=== PATIENT | male | born 1995 | race Caucasian/White ===

== ENCOUNTER → 2017-08-20 | Outpatient (CLI) | payer OTHER ==
[~2017-08-20] MED LIST: DOXE3TAB4 PO; HYDR-4228 PO; NS(*) 0.9% 1000 ML BAG 1,000 ML IV ONE; ONDA4TAB PO; ONDANSETRON 4 MG/2 ML VIAL IVP ONE; SERT-184 PO
== END ==
LOC: SPU 11:54
PROVIDERS: ATTEND Nurse Practitioner Primary Care
DX: K52.9 Noninfective gastroenteritis and colitis, unspecified (principal)
CPT/HCPCS: 96360; J2405; J7030

== ENCOUNTER → 2018-03-29 | Outpatient (CLI) | payer OTHER ==
[~2018-03-29] MED LIST changes: +AMOX-559 PO; +FLUT16SP19 NS; -NS(*) 0.9% 1000 ML BAG 1,000 ML IV ONE; -ONDANSETRON 4 MG/2 ML VIAL IVP ONE; +[UNRECOGNIZED DRUG - REMARK]
== END ==
LOC: LAB 11:02
PROVIDERS: ATTEND Nurse Practitioner Primary Care
DX: Z11.3 Encounter for screening for infections with a predominantly sexual mode of transmission (principal)
CPT/HCPCS: 36415; 86592; 86703; 87491; 87591

== ENCOUNTER → 2019-01-16 | Outpatient (CLI) | payer OTHER ==
[~2019-01-16] MED LIST changes: +GUAI120L3 PO
== END ==
LOC: RESP 08:10
PROVIDERS: ATTEND Specialist
DX: G40.309 Generalized idiopathic epilepsy and epileptic syndromes, not intractable, without status epilepticus (principal)
CPT/HCPCS: 95819

== ENCOUNTER 2019-01-28 08:40 | Emergency (ER) | payer OTHER ==
--- NOTE | 2019-01-28 08:38 | ER Report ---
History and Physical Time Seen By MD: 08:35 HPI/ROS CHIEF COMPLAINT: Recurrent seizure HISTORY OF PRESENT ILLNESS: Patient is a 23-year-old male here with complaints of recurrent seizure last of which was last night, today's seizure was witnessed by the patient's girlfriend who reports that the patient is not coming around this quickly is normal prompting evaluation. Patient is postictal at time of evaluation. There are no obvious signs of trauma at time of evaluation, patient does open his eyes to verbal stimulus but is unable to respond at this time. REVIEW OF SYSTEMS: Unable to obtain due to patient's mental status Allergies: Coded Allergies: No Known Drug Allergies (Unverified , 02/20/17) Home Meds Active Scripts Levetiracetam (KEPPRA) 750 Mg Tablet, 750 MG PO BID for 30 Days, #60 TAB 3 Refills Prov:JO ANN KUHN DO 01/28/19 Discontinued Scripts Guaifenesin/Codeine Phosphate (Codeine-Guaifen 10-100 mg/5 ml) 120 Ml Liquid, 1- 2 TSP PO Q6H PRN for COUGH, #120 ML 0 Refills Prov:LEONEL VALLE DNP, [employer] 11/22/18 Smoking Status: Never Smoker Hx Substance Use Disorder: Yes Hx Alcohol Use: Yes Constitutional Vital Sign - Last 24 Hours 01/28/19 08:43 Temp 97.1 Pulse 75 Resp 20 B/P (MAP) 123/69 Pulse Ox 92 O2 Delivery Room Air Physical Exam General Appearance: Patient is postictal, somnolent, opening eyes to verbal stimulus and moving all extremities Eyes: Pupils equal and round no pallor or injection. ENT, Mouth: Mucous membranes are moist. Respiratory: There are no retractions, lungs are clear to auscultation. Cardiovascular: Regular rate and rhythm. Gastrointestinal: Abdomen is soft and non tender, no masses, bowel sounds normal. Neurological: Moving all extremities, opens eyes to verbal stimulus, seemingly postictal Skin: Warm and dry, no rashes. Musculoskeletal: Neck is supple non tender. Extremities are nontender, nonswollen and have full range of motion. DIFFERENTIAL DIAGNOSIS: After history and physical exam differential diagnosis was considered for a seizure including but not limited to electrolyte abnormality, alcohol withdrawal, medication noncompliance, head injury, and breakthrough seizure. Medical Decision Making Data Points Result Diagram: 01/28/19 0824 01/28/19 0824 Laboratory Hematology Test 01/28/19 08:24 White Blood Count 19.8 k/uL (4.5-11.0) H Red Blood Count 4.97 M/uL (4.00-5.60) Hemoglobin 15.8 g/dL (14.0-18.0) Hematocrit 47.9 % (42.0-52.0) Mean Corpuscular Volume 96.2 fL (80.0-96.0) H Mean Corpuscular Hemoglobin 31.7 pg (26.0-33.0) Mean Corpuscular Hemoglobin Concent 33.0 g/dL (32.0-36.0) Red Cell Distribution Width 13.6 % (11.5-14.5) Platelet Count 307 K/uL (150-450) Mean Platelet Volume 8.8 fL (7.2-11.1) Neutrophils (%) (Auto) 71.2 % (39.4-72.5) Lymphocytes (%) (Auto) 19.1 % (17.6-49.6) Monocytes (%) (Auto) 8.7 % (4.1-12.4) Eosinophils (%) (Auto) 0.2 % (0.4-6.7) L Basophils (%) (Auto) 0.8 % (0.3-1.4) Nucleated RBC Relative Count (auto) 0.0 /100WBC Neutrophils # (Auto) 14.1 K/uL (2.0-7.4) H Lymphocytes # (Auto) 3.8 K/uL (1.3-3.6) H Monocytes # (Auto) 1.7 K/uL (0.3-1.0) H Eosinophils # (Auto) 0.0 K/uL (0.0-0.5) Basophils # (Auto) 0.2 K/uL (0.0-0.1) H Nucleated RBC Absolute Count (auto) 0.01 K/uL Chemistry Test 01/28/19 08:24 01/28/19 08:51 Sodium Level 146 mmol/L (137-145) Potassium Level 3.0 mmol/L (3.5-5.0) Chloride Level 104 mmol/L (98-107) Carbon Dioxide Level 8 mmol/L (22-30) Blood Urea Nitrogen 17 mg/dl (9-21) Creatinine 1.20 mg/dl (0.66-1.25) Glomerular Filtration Rate Calc > 60.0 Random Glucose 204 mg/dl (75-110) Calcium Level 10.4 mg/dl (8.4-10.2) Total Bilirubin 1.2 mg/dl (0.2-1.3) Aspartate Amino Transf (AST/SGOT) 46 U/L (0-35) Alanine Aminotransferase (ALT/SGPT) 21 U/L (0-56) Alkaline Phosphatase 80 U/L (0-126) Total Creatine Kinase 1011 U/L (55-170) Total Protein 9.0 g/dl (6.3-8.2) Albumin 5.8 g/dl (3.5-5.0) Whole Blood Glucose 170 mg/DL (75-110) Toxicology Test 01/28/19 08:24 01/28/19 09:48 Serum Alcohol < 10 mg/dl Urine Opiates Screen Negative Urine Barbiturates Screen Negative Ur Tricyclic Antidepressants Screen Negative Urine Phencyclidine Screen Negative Urine Amphetamines Screen Negative Urine Benzodiazepines Screen Negative Urine Cocaine Screen Negative Urine Cannabinoids Screen Positive Urinalysis Test 01/28/19 09:48 Urine Color Yellow Urine Clarity Clear Urine pH 5.0 pH (4.8-9.5) Urine Specific [place] 1.014 Urine Protein 100 mg/dL (NEGATIVE) Urine Glucose (UA) Negative mg/dL (NEGATIVE) Urine Ketones Trace mg/dL (NEGATIVE) Urine Blood Moderate (NEGATIVE) Urine Nitrite Negative (NEGATIVE) Urine Bilirubin Negative (NEGATIVE) Urine Urobilinogen Negative mg/dL (0.2-1.9) Urine Leukocyte Esterase Negative (NEGATIVE) Urine RBC <1 /HPF (0-2/HPF) Urine WBC 1 /HPF (0-5/HPF) Urine Squamous Epithelial Cells Few /LPF (</=FEW) Urine Bacteria Negative /HPF (NONE-FEW) Urine Mucus None /HPF (NONE-FEW) ED Course/Re-evaluation ED Course Patient is a 23-year-old male here with complaints of recurrent seizure initially postictal. Patient reportedly had a seizure last night however this morning patient had a much longer postictal phase prompting ED evaluation. Patient's mental status improved significantly throughout course in the emergency department. Patient was mildly acidotic with an elevated CPK which is expected in this setting. Patient was given an IV fluid bolus, Toradol for headache. I consulted neurology at [facility] Dr. Jensen who agreed that in the setting of a recurrent seizure, loading the patient with Keppra 1 g would be advisable. He recommended placing the patient on 750 mg Keppra twice daily for seizure prophylaxis. The patient agreed to follow up with neurology for further treatment and care. Return precautions provided. Patient was stable at time of discharge. Decision to Disposition Date: Jan 28, 2019 Decision to Disposition Time: 10:50 Depart Departure Latest Vital Signs Vital Signs Date Time Temp Pulse Resp B/P (MAP) Pulse Ox O2 Delivery O2 Flow Rate FiO2 01/28/19 08:43 97.1 75 20 123/69 92 Room Air Impression: Primary Impression: Seizure Condition: Improved Disposition: HOME OR SELF-CARE Referrals: LEONEL VALLE DNP, [employer] (PCP) New Scripts Levetiracetam (KEPPRA) 750 Mg Tablet 750 MG PO BID for 30 Days, #60 TAB 3 Refills Prov: JO ANN KUHN DO 01/28/19 Patient Instructions: Recurrent Seizures in Adults (ED) Additional Instructions: Please drink plenty of water. Please take Keppra 750 mg twice daily and follow- up with your neurologist in the next 1-2 days. Please return promptly if you develop recurrent seizures, worsening headaches, weakness, inability to keep down food or fluids, fevers or chills. JO ANN KUHN DO Jan 28, 2019 08:38
[~2019-01-28 08:40] MED LIST changes: -LEVE750T74 PO
[2019-01-28] MEDS ORDERED: NS(*) 0.9% 1000 ML BAG 1,000 ML IV ONE (08:45)
[2019-01-28 09:13] LABS: PLATELET COUNT, AUTOMATED 307 K/uL (150-450)
[2019-01-28] MEDS ORDERED: KETOROLAC 30 MG/ML VIAL IVP ONE (09:40)
[2019-01-28] MEDS ORDERED: LEVETIRACETAM 500 MG/100 ML 100 ML IVPB ONE (10:10)
[2019-01-28 10:30] VITALS: BP 114/87
[2019-01-28] MEDS ORDERED: LEVE750T74 PO (10:56)
[2019-01-28] MEDS ORDERED: ONDANSETRON 4 MG ODT TABDP SL ONE (11:00)
[2019-01-28] MEDS ORDERED: ONDANSETRON 4 MG/2 ML VIAL IVP ONE (11:00)
--- NOTE | 2019-01-28 12:19 | EKG ---
FACILITY: [facility] - [place] PATIENT NAME: DANIELLE CROCKER : [id number] MR: [id number] V: [id number] EXAM DATE: ORDERING PHYSICIAN: JO ANN KUHN TECHNOLOGIST: Test Reason : Blood Pressure : / mmHG Vent. Rate : 074 BPM Atrial Rate : 074 BPM P-R Int : 146 ms QRS Dur : 098 ms QT Int : 420 ms P-R-T Axes : 077 270 065 degrees QTc Int : 466 ms Normal sinus rhythm with sinus arrhythmia Left axis deviation Voltage criteria for left ventricular hypertrophy Abnormal ECG No previous ECGs available Confirmed by MARY MEYER ([id number]) on 01/28/2019 4:12:45 PM Referred By: Confirmed By:MARY MEYER
== END 2019-01-28 11:12 | disposition home or self-care (01) ==
LOC: ER 08:42
DX: R56.9 Unspecified convulsions (principal)
CPT/HCPCS: 36416; 80305; 80320; 81001; 82375; 82550; 82803; 82948; 85025; 93005; 96361; 96365; 96375; 99284; J1885; J1953; J2405; J7030; 82040; 82247; 82310; 82374; 82435; 82565; 82947; 84075; 84132; 84155; 84295; 84450; 84460; 84520

== ENCOUNTER → 2019-01-28 | Outpatient (CLI) | payer OTHER ==
[~2019-01-28] MED LIST changes: +LEVE750T74 PO
== END ==
LOC: AMB 08:21
PROVIDERS: ATTEND Nurse Practitioner
DX: R41.82 Altered mental status, unspecified (principal); R61 Generalized hyperhidrosis
CPT/HCPCS: A0425; A0427